=== PATIENT | female | born 1955 | race Caucasian/White ===

== ENCOUNTER 2022-05-20 19:56 | Emergency (ER) | payer MEDICARE ==
[~2022-05-20] VITALS: Ht 152.4 cm; Wt 136.1 kg
== END 2022-05-20 23:37 | disposition home or self-care (01) ==
LOC: ER 19:56
DX: S81.812A Laceration without foreign body, left lower leg, initial encounter (principal); X58.XXXA Exposure to other specified factors, initial encounter; Z88.1 Allergy status to other antibiotic agents
CPT/HCPCS: 99282

== ENCOUNTER 2023-06-28 14:17 | Day surgery (SDC) | payer MEDICARE ==
[~2023-06-28] VITALS: Ht 152.4 cm; Wt 143.2 kg
--- NOTE | 2023-06-28 14:52 | NUR ---
06/28/23 1452 EVAN ADRONOECAINE: 1448 PLEDGIT: 1455
[2023-06-28] MEDS ORDERED: DIPH50 PO (14:55)
[2023-06-28] MEDS ORDERED: PSEU120ER PO (14:56)
[2023-06-28] MEDS ORDERED: VITAMIN B122500 MC1 PO (14:56)
[2023-06-28 15:47] VITALS: BP 182/85
--- NOTE | 2023-06-28 15:47 | NUR ---
06/28/23 1547 Nikki Cano IV REMOVED, CANNULA INTACT. PT ARLETH WELL. IV SITE WNL. PT DENIES NAUSEA AND PAIN
== END 2023-06-28 16:02 | disposition home or self-care (01) ==
LOC: ORSCSDS 14:17
PROVIDERS: Ophthalmology
PROC: 08RJ3JZ Replacement of Right Lens with Synthetic Substitute, Percutaneous Approach (ICD-10-PCS; principal; 2023-06-28 15:30)
DX: H25.11 Age-related nuclear cataract, right eye (principal); E66.01 Morbid (severe) obesity due to excess calories; Z68.44 Body mass index [BMI] 60.0-69.9, adult; J45.909 Unspecified asthma, uncomplicated; R06.02 Shortness of breath
CPT/HCPCS: J2250; J3010; J3301; J7040; V2632

== ENCOUNTER 2023-07-05 14:18 | Day surgery (SDC) | payer MEDICARE ==
[~2023-07-05] VITALS: Ht 152.4 cm; Wt 142.0 kg
[~2023-07-05 14:18] MED LIST: DIPH50 PO; PSEU120ER PO; VITAMIN B122500 MC1 PO
[2023-07-05] MEDS ORDERED: ALBU90OI (14:40)
--- NOTE | 2023-07-05 14:43 | NUR ---
07/05/23 1443 Steffany Arteaga TETRACAINE TO THE LEFT EYE AT 1428 PLEDGET TO LEFT EYE AT 1429 BY [facility].FLL
[2023-07-05 15:28] VITALS: BP 192/93
--- NOTE | 2023-07-05 15:40 | NUR ---
07/05/23 1013 Leona Braun PT IS AWARE OF HYPERTENSION AND IS IN THE PROCESS OF FINDING A PRIMARY CARE.
== END 2023-07-05 15:45 | disposition home or self-care (01) ==
LOC: ORSCSDS 14:18
PROVIDERS: Ophthalmology
PROC: 08RK3JZ Replacement of Left Lens with Synthetic Substitute, Percutaneous Approach (ICD-10-PCS; principal; 2023-07-05 15:30)
DX: H25.12 Age-related nuclear cataract, left eye (principal); H21.81 Floppy iris syndrome; H52.202 Unspecified astigmatism, left eye; Z96.1 Presence of intraocular lens; J45.909 Unspecified asthma, uncomplicated; Z79.899 Other long term (current) drug therapy; E66.01 Morbid (severe) obesity due to excess calories; Z68.44 Body mass index [BMI] 60.0-69.9, adult
CPT/HCPCS: J2250; J3010; J3301; J7040; V2632